=== PATIENT | male | born 1950 | race Caucasian/White ===

== ENCOUNTER 2019-09-13 18:29 | Inpatient (IN) | payer OTHER ==
[~2019-09-13] VITALS: Ht 170.2 cm; Wt 68.0 kg
[2019-09-13] MEDS ORDERED: ONDANSETRON HCL 4MG/2ML INJ IV STA (18:45)
[2019-09-13] MEDS ORDERED: SODIUM CHLORIDE 0.9% 500 ML IV ONE (18:45)
[2019-09-13 19:48] LABS: HEMATOCRIT. 26.4 % (42.0-52.0); HEMOGLOBIN. 8.7 g/dL (14.0-18.0); MEAN CORPUSCULAR HEMOGLOBIN 30.9 pg (28.0-32.0); MEAN CORPUSCULAR VOLUME 94.2 fL (80.0-94.0); MEAN PLATELET VOLUME 8.4 fl (7.4-10.4); PLATELET 211 x1000/uL (130-400); RED BLOOD CELL COUNT 2.81 mill/uL (4.7-6.1); RED CELL DISTRIBUTION WIDTH 19.4 % (11.6-14.6)
[2019-09-13 19:49] LABS: CHLORIDE 92 mEq/L (98-107)
[2019-09-13 19:53] LABS: ETHANOL BLOOD < 10 mg/dL
[2019-09-13 19:58] LABS: CREATINE KINASE 18 IU/L (39-308)
[2019-09-13 20:30] LABS: CLARITY URINE CLEAR (CLEAR); COLOR URINE YELLOW (YELLOW); KETONES URINE NEGATIVE (NEGATIVE); LEUKOCYTE ESTERASE URINE NEGATIVE (NEGATIVE); NITRITE URINE NEGATIVE (NEGATIVE); OCCULT BLOOD URINE NEGATIVE (NEGATIVE); PROTEIN URINE NEGATIVE (NEGATIVE)
[2019-09-13 20:41] LABS: *AMPHETAMINES SCREEN URINE NEGATIVE (NEGATIVE); *BARBITURATES SCREEN URINE NEGATIVE (NEGATIVE); *BENZODIAZEPINES SCREEN URINE NEGATIVE (NEGATIVE); *COCAINE SCREEN URINE NEGATIVE (NEGATIVE); CANNABINOID URINE SCREEN NEGATIVE (NEGATIVE); METHADONE URINE SCREEN NEGATIVE (NEGATIVE); OPIATES URINE SCREEN NEGATIVE (NEGATIVE); PHENCYCLIDINE URINE SCREEN NEGATIVE (NEGATIVE)
[2019-09-13] MEDS ORDERED: CEFTRIAXONE 1 G PREMIX 50 ML IV ONE (21:15)
[2019-09-13 21:25] LABS: PLATELET ESTIMATE NORMAL
[2019-09-13] MEDS ORDERED: SODIUM CHLORIDE 0.9% 250 ML IV ONE (23:15)
[2019-09-13] MEDS ORDERED: SODIUM CHLORIDE 0.9% 1,000 ML IV ONE (23:15)
[2019-09-14] MEDS ORDERED: PIPERACILLIN/TAZOBACTAM 3.375 G in DEXT 5% WATER 100 ML IV SCH ×2 (08:30→08:45)
[2019-09-14] MEDS ORDERED: ACETAMINOPHEN 325MG TABLET PO PRN ×2 (08:30→08:45)
[2019-09-14] MEDS ORDERED: ONDANSETRON HCL 4MG/2ML INJ IV PRN ×2 (08:30→08:45)
[2019-09-14] MEDS ORDERED: SODIUM CHLORIDE 0.9% 1,000 ML IV SCH (08:30)
[2019-09-14 09:20] VITALS: BP 114/54
[2019-09-14 10:00] VITALS: BP 89/56
[2019-09-14] MEDS: SODIUM CHLORIDE 0.9% 1,000 ML IV SCH (10:27)
[2019-09-14] MEDS ORDERED: VANCOMYCIN 1250MG in DEXTROSE 5% WATER 250ML IV SCH (11:00)
[2019-09-14] MEDS: PIPERACILLIN/TAZOBACTAM 3.375 G in DEXT 5% WATER 100 ML IV SCH ×2 (11:56→16:50)
[2019-09-14 12:00] VITALS: BP 91/54
[2019-09-14 16:00] VITALS: BP 90/44
[2019-09-14] MEDS: ENOXAPARIN 80MG/0.8ML SYR SUBCUT SCH (16:50)
[2019-09-14 20:00] VITALS: BP 100/60
[2019-09-14] MEDS: VANCOMYCIN 1 G PREMIX 200 ML IV SCH (20:44)
[2019-09-15] VITALS: BP 106/55
[2019-09-15] MEDS: PIPERACILLIN/TAZOBACTAM 3.375 G in DEXT 5% WATER 100 ML IV SCH ×4 (00:55→18:00)
[2019-09-15] MEDS: ENOXAPARIN 80MG/0.8ML SYR SUBCUT SCH ×2 (03:48→16:00)
[2019-09-15 04:00] VITALS: BP 97/54
[2019-09-15] MEDS: SODIUM CHLORIDE 0.9% 1,000 ML IV SCH (06:02)
[2019-09-15 08:00] VITALS: BP 90/49
[2019-09-15] MEDS: VANCOMYCIN 1 G PREMIX 200 ML IV SCH (08:09)
[2019-09-15 16:04] LABS: HEMATOCRIT. 23.4 % (42.0-52.0); HEMOGLOBIN. 7.5 g/dL (14.0-18.0); MEAN CORPUSCULAR HEMOGLOBIN 30.9 pg (28.0-32.0); MEAN CORPUSCULAR VOLUME 96.3 fL (80.0-94.0); MEAN PLATELET VOLUME 8.9 fl (7.4-10.4); PLATELET 186 x1000/uL (130-400); RED BLOOD CELL COUNT 2.43 mill/uL (4.7-6.1); RED CELL DISTRIBUTION WIDTH 20.6 % (11.6-14.6)
[2019-09-15 16:10] LABS: CHLORIDE 96 mEq/L (98-107)
[2019-09-15 16:13] LABS: INR 1.9; PROTHROMBIN TIME 19.5 sec (9.6-11.0)
[2019-09-15 17:13] LABS: PLATELET ESTIMATE NORMAL
[2019-09-15 20:05] VITALS: BP 92/51
== END 2019-09-15 20:32 | disposition hospice, home (50) | DRG 871 ==
LOC: ER 18:29 → 7WST 09-14 00:22 → ENRESERV 09-14 07:26 → ER 09-14 08:04 → 6WST 09-15 02:55
PROVIDERS: ADMIT Internal Medicine; ATTEND Internal Medicine
DX: A41.9 Sepsis, unspecified organism (principal); E43 Unspecified severe protein-calorie malnutrition; G93.41 Metabolic encephalopathy; C78.7 Secondary malignant neoplasm of liver and intrahepatic bile duct; C18.9 Malignant neoplasm of colon, unspecified; E87.1 Hypo-osmolality and hyponatremia; I82.401 Acute embolism and thrombosis of unspecified deep veins of right lower extremity; Z66 Do not resuscitate; Z51.5 Encounter for palliative care; D64.9 Anemia, unspecified; D72.810 Lymphocytopenia; E86.1 Hypovolemia; E87.5 Hyperkalemia; R62.7 Adult failure to thrive; R74.0 Nonspecific elevation of levels of transaminase and lactic acid dehydrogenase [LDH]; Z20.828 Contact with and (suspected) exposure to other viral communicable diseases; Z90.49 Acquired absence of other specified parts of digestive tract; Z85.038 Personal history of other malignant neoplasm of large intestine; Z68.23 Body mass index [BMI] 23.0-23.9, adult
CPT/HCPCS: 36415; 71045; 76705; 80048; 80053; 80305; 80320; 81003; 82140; 82550; 83605; 83880; 84484; 85025; 86850; 86900; 93005; 93970; 97162; 99291; J0696; J1650; J2405; J2543; J3370; J7040; J7060; G0480; U0003-CS